=== PATIENT | male | born 1985 | race Caucasian/White ===

== ENCOUNTER 2021-01-13 09:07 | Outpatient (CLI) | payer OTHER, SELFPAY ==
--- NOTE | ~2021-01-13 | CT_ITS ---
EXAMINATION: CT abdomen pelvis w con DATE: 01/13/2021 09:39 INDICATION: Abdominal pain TECHNIQUE: Computed tomography (CT) of the abdomen and pelvis was performed with 100 mL Omnipaque-350 intravenous contrast. Automated exposure control and iterative reconstruction technique were employe d. The dose-length product was 594.94 mGy-cm. COMPARISON: None FINDINGS: Lung bases are clear. Heart size is normal. No pericardial or pleural effusion. Small sliding-type hi atal hernia. Several small well-defined low-attenuation hepatic cysts the largest measuring 1.4 cm. G allbladder, spleen, pancreas and bilateral adrenal glands are normal. Couple bilateral low-attenuatio n renal cysts the largest measuring 1.5 cm the upper pole of the left kidney. Small wedge-shaped jonatan ons of subtle decreased parenchymal enhancement at the lower pole of the left kidney suspicious for p yelonephritis. Small calcified appendicolith within the normal appendix. Bowels are unremarkable with no wall thickening or obstruction. Decompressed bladder is unremarkable. No free intraperitoneal gas or fluid. No pathologically enlarged abdominal or pelvic lymphadenopathy. L1 hemangioma. Mild thorac olumbar spondylosis. IMPRESSION: 1. Small regions of decreased parenchymal enhancement at the lower pole of the left kidney raising simeon spicion for pyelonephritis. Differential would include infarct. Correlate with urinalysis. Reviewed, dictated and finalized at location A. IMPRESSION: 1. Small regions of decreased parenchymal enhancement at the lower pole of the left kidney raising suspicion for pyelonephritis. Differential would include in farct. Correlate with urinalysis.
== END 2021-01-13 09:08 | disposition home or self-care (01) ==
PROVIDERS: Visit Provider Internal Medicine Gastroenterology
DX: R10.9 Unspecified abdominal pain (principal)
CPT/HCPCS: 74177; Q9967

== ENCOUNTER 2023-10-12 05:09 | Observation (INO) | payer OTHER, SELFPAY ==
[2023-10-12] VITALS (26 sets, daily range): BP systolic 103–133; BP diastolic 51–84; PULSE 80–157; RESP 15–27; TEMP 36.3–39.2; O2SAT 82–100
--- NOTE | ~2023-10-12 | CT_ITS ---
EXAMINATION: CTA chest PE protocol DATE: 10/12/2023 06:51 CORE OVEN TENDER INDICATION: Covid positive hypoxia. Tachycardia. TECHNIQUE: Computed tomographic angiography (CTA) of the chest was performed with 100 mL Omnipaque-35 0 intravenous contrast. The dose-length product was 631.47 mGy-cm. Maximum intensity projection 3D-re constructions of the aorta and other arteries were constructed by the technologist on a separate work station. COMPARISON: CT dated 10/12/2023. FINDINGS: Study technically adequate without evidence for pulmonary embolism. Mild mediastinal lympha denopathy, likely reactive. No significant pleural or pericardial effusion. There are liver cysts. Th ere is an accessory splenule. No endobronchial lesions. There is a 6 there is a 2 mm left fissural no dule. There are groundglass opacities in the lingula and left lower lobe, suspicious for pneumonia. M m fissural nodule on the right, image 51. 3 mm left lower lobe nodule, image 76. Mild thoracic spondy losis. IMPRESSION: 1. Groundglass opacities lingula and left lower lobe, consistent with pneumonia. 2: Mediastinal lymphadenopathy, likely reactive. 3: Small pulmonary nodules, likely benign. Consider follow-up CT chest in 12 months. Reviewed, dictated and finalized at location A. OVEN TENDER IMPRESSION: 1. Groundglass opacities lingula and left lower lobe, consistent with pneumonia . 2: Mediastinal lymphadenopathy, likely reactive. 3: Small pulmonary nodules, likely benign. Consider follow-up CT chest in 12 mo nths.
--- NOTE | ~2023-10-12 | XR_ITS ---
XR chest 1V portable 10/12/2023 06:02 Indication: Dyspnea. Covid positive. Procedure: AP portable chest Comparison: No prior studies for comparison. Findings: Heart size normal. No focal air space disease, pulmonary edema, pleural effusion or suspect ed pneumothorax. Impression: 1: No acute cardiopulmonary disease. Reviewed, dictated and finalized at location A. R FILTERER Impression: 1: No acute cardiopulmonary disease.
--- NOTE | 2023-10-12 05:24 | ECG_ITS ---
Measurements Intervals [place] Rate: 152 P: 33 WI: 120 QRS: 59 QRSD: 85 T: 51 QT: 253 QTc: 403 Interpretive Statements SINUS TACHYCARDIA INCOMPLETE RIGHT BUNDLE BRANCH BLOCK DELAYED PRECORDIAL R/S TRANSITION BASELINE WANDER- III, AVR, AVL, AVF ABNORMAL ECG NO PREVIOUS ECG AVAILABLE FOR COMPARISON Electronically Signed On 10-12-2023 8:14:50 ELECTRICIAN MAINTENANCE by Jose Rowe D.O.
--- NOTE | 2023-10-12 05:25 | ED.GENADULT ---
HPI - General Adult General Chief complaint: Shortness of Breath/Dyspnea Stated complaint: COVID+, SOB Time Seen by Provider: 10/12/23 05:19 History of Present Illness HPI narrative: patient is a 37-year-old gentleman who presents emergency department with chief complaint of shortness of breath. Patient reports that she started feeling bad on Friday or Friday and tested positive for COVID on Friday patient reports that he has been getting progressively more short of breath reports that he has been coughing and today he just feels generally unwell. The patient reports no prior history of lung problems or cardiac issues Related Data Allergies Allergy/AdvReac Type Severity Reaction Status Date / Time No Known Allergies Allergy Verified 10/12/23 05:32 Review of Systems Review of Systems: A 10 system review of systems was completed on the patient and is negative except for what is stated in the HPI. Nursing and ancillary documentation was reviewed. Exam Narrative: GENERAL: Well-appearing, well-nourished, and in no acute distress. HEAD: Normocephalic, atraumatic. EYES: PERRLA and EOMI. ENT: Nares clear, no rhinorrhea or epistaxis. Mucous membranes moist. NECK: Supple. CHEST: Clear to auscultation. mild respiratory distress. HEART: tachycardic rate and rhythm. No murmur heard. Normal peripheral pulses. ABDOMEN: Soft, nontender, nondistended, normal active bowel sounds. EXTREMITIES: Normal range of motion. No edema. SKIN: Warm, dry, no rash. NEURO: No focal deficits. Alert and oriented x3. PSYCH: Normal mood and affect. Course Vital Signs Vital signs: Vital Signs Temperature 39.2 C H 10/12/23 05:17 Pulse Rate 155 H 10/12/23 05:17 Respiratory Rate 24 H 10/12/23 05:17 Blood Pressure 103/51 L 10/12/23 05:17 Pulse Oximetry 87 L 10/12/23 05:17 Oxygen Delivery Nasal Cannula 10/12/23 05:17 Oxygen Flow Rate 5 10/12/23 05:17 Temperature 39.2 C H 10/12/23 05:17 Pulse Rate 155 H 10/12/23 05:17 Respiratory Rate 24 H 10/12/23 05:17 Blood Pressure 103/51 L 10/12/23 05:17 Pulse Oximetry 95 10/12/23 06:34 Oxygen Delivery High Flow Nasal Cannula 10/12/23 06:34 Oxygen Flow Rate 8 10/12/23 06:34 Medical Decision Making MDM Narrative Medical decision making narrative: differential diagnosis includes viral syndrome, pulmonary embolism, electrolyte abnormality, pneumonia, sepsis the patient was started on fluid resuscitation given antipyretics laboratory studies showed a positive RSV test white count was 10.6 lactate was 2.4 troponin was negative urinalysis shows trace ketones CT scan showed . Groundglass opacities lingula and left lower lobe, consistent with pneumonia. 2:? Mediastinal lymphadenopathy, likely reactive. 3: Small pulmonary nodules, likely benign. Consider follow-up CT chest in 12 months. Vital Signs Vital Signs: Vital Signs Temperature 39.2 C H 10/12/23 05:17 Pulse Rate 155 H 10/12/23 05:17 Respiratory Rate 24 H 10/12/23 05:17 Blood Pressure 103/51 L 10/12/23 05:17 Pulse Oximetry 87 L 10/12/23 05:17 Oxygen Delivery Nasal Cannula 10/12/23 05:17 Oxygen Flow Rate 5 10/12/23 05:17 Temperature 39.2 C H 10/12/23 05:17 Pulse Rate 155 H 10/12/23 05:17 Respiratory Rate 24 H 10/12/23 05:17 Blood Pressure 103/51 L 10/12/23 05:17 Pulse Oximetry 95 10/12/23 06:34 Oxygen Delivery High Flow Nasal Cannula 10/12/23 06:34 Oxygen Flow Rate 8 10/12/23 06:34 Lab Data 10/12/23 05:29 10/12/23 05:29 Labs: Lab Results 10/12/23 10/12/23 Range/Units 05:29 06:14 WBC 10.6 H (4.5-10.0) K/mm3 RBC 5.57 (4.6-6.20) M/mm3 Hgb 15.7 (14.0-18.0) g/dL Hct 47.5 (42.0-52.0) % MCV 85.3 (80-100) fl MCH 28.2 (26-34) pg MCHC 33.1 (32-36) g/dl RDW 14.5 (11.5-14.5) % Plt Count 302 (150-375) k/mm3 MPV 10.3 (7.4-10.4) fl Immature Gran % (Auto) 0.3 (0-0.5) % Buster
[2023-10-12] MEDS: BENZONATATE 100 MG CAPSULE 200 MG PO (05:32)
[2023-10-12] MEDS: ACETAMINOPHEN 500 MG TABLET 1000 MG PO (05:32)
[2023-10-12] MEDS: SODIUM CHLORIDE 0.9% IV 1,000 ML 999 ML IV CONT ×2 (05:33→06:19)
[2023-10-12] MEDS: ALBUTEROL SULFATE (*SP) INHALER 2 PUFF INHALATION (05:37)
[2023-10-12 05:43] LABS: Basophils Absolute Auto 0.1 K/mm3 (0.0-0.1); Basophils Percent Auto 0.6 % (0.2-1.2); Eosinophils Percent Auto 0.1 % (0-4.4); Hematocrit 47.5 % (42.0-52.0); Hemoglobin 15.7 g/dL (14.0-18.0); Immature Granulocyte Absolute 0.03 K/mm3 (0.00-0.031); Immature Granulocyte Percent A 0.3 % (0-0.5); Lymphocytes Absolute Auto 2.63 K/mm3 (0.9-3.2); Lymphocytes Percent Auto 24.9 % (18.3-44.2); Mean Corpuscular HGB Conc 33.1 g/dl (32-36); Mean Corpuscular Hemoglobin 28.2 pg (26-34); Mean Corpuscular Volume 85.3 fl (80-100); Mean Platelet Volume 10.3 fl (7.4-10.4); Monocytes Absolute Auto 0.6 K/mm3 (0.1-0.6); Monocytes Percent Auto 5.7 % (2.6-8.5); Neutrophils Absolute Auto 7.2 K/mm3 (1.3-6.7); Neutrophils Percent Auto 68.4 % (45.5-73.1); Platelet Count Result 302 k/mm3 (150-375); Red Blood Count 5.57 M/mm3 (4.6-6.20); Red Cell Distribution Width 14.5 % (11.5-14.5); White Blood Count 10.6 K/mm3 (4.5-10.0)
[2023-10-12 05:51] LABS: Lactic Acid Reflex 2.4 mmol/L (0.7-2.0)
[2023-10-12 05:52] LABS: Alanine Aminotransferase 38 U/L (6-50); Albumin Level 4.2 g/dL (3.5-5.1); Alkaline Phosphatase 81 U/L (38-126); Anion Gap 12 mmol/L (8-16); Aspartate Amino Transferase 40 U/L (17-59); Bilirubin,Total 0.4 mg/dL (0.2-1.3); Blood Urea Nitrogen 19 mg/dL (9-20); Calcium 9.6 mg/dL (8.4-10.2); Carbon Dioxide 21 mmol/L (22-30); Chloride 106 mmol/L (98-107); Estimated CRCL calculation 76 ml/min; Estimated Glomerular Filt Rate > 60; Glucose 149 mg/dL (65-110); Potassium 3.9 mmol/L (3.4-5.0); Sodium 139 mmol/L (137-145)
[2023-10-12 06:04] LABS: NT Pro B Type Natriuretic Pept 52 pg/mL (19.9-100); Troponin I 0.016 ng/mL (0.000-0.034)
[2023-10-12 06:19] LABS: Influenza A QL RT-PCR Negative (Negative); Influenza B QL RT-PCR Negative (Negative); RSV RNA, RT-PCR Positive (Negative); SARS-CoV-2 RNA PCR Negative (Negative)
[2023-10-12 06:25] LABS: Prothrombin Time 13.8 Seconds (11.1-14.7)
[2023-10-12 06:26] LABS: Partial Thromboplastin Time 25.6 SECONDS (22.3-36.8)
[2023-10-12 06:31] LABS: Appearance Urine Clear (Clear); Bacteria Urine None Seen /hpf; Bilirubin Urine 1+ (Negative); Blood Urine Negative (Negative); Color Urine Dark Yellow (Yellow); Glucose Urine UA Negative (Negative); Ketones Urine Trace mg/dL (Negative); Leukocyte Esterase Ur Negative LEU/UL (Negative); Nitrate Urine Negative (Negative); Protein Urine 1+ mg/dL (Negative); RBC Urine 0-2 /hpf (0-2); Specific Grav Ur 1.031 (1.001-1.035); Squamous Epithelial Cell Urine Occasional /hpf (Few); WBC Urine 0-5 /hpf; pH Urine 5.5 (5.0-9.0)
[2023-10-12 06:33] LABS: Add Urine Microscopic? YES
[2023-10-12 06:43] LABS: Procalcitonin 0.1 ng/mL
--- NOTE | 2023-10-12 07:10 | PM.IMHP ---
H&P: HPI History of Present Illness Date/Time: 10/12/23 07:10 Chief Complaint: Shortness of breath Narrative: Patient is a 37-year-old male developed flu-like symptoms on Friday last week, subsequently progressed on cough congestion, and Friday he had was deformed COVID test. He was taking [id number] medication but this was not helping. Yesterday he developed shortness of breath, and when he woke up this morning he was shivering and unable to catch his breath and was brought to the ED. he came in tachycardic hypoxic and tachypneic, requiring high-flow nasal cannula to keep oxygen saturation above 95 %, he got fluid boluses and breathing treatment with steroid which improved symptoms, his white count came back mildly elevated, he is COVID negative he however has positive RSV. CTA of the chest negative PE however showed ground-glass opacity in both lung bases. He denied vomiting or diarrhea and also said that he had been hydrating himself at home. Currently feels little bit better. Review of Systems Review of Systems: All systems reviewed & are unremarkable except as noted in HPI and below Meds Home Medications and Allergies Allergies Allergy/AdvReac Type Severity Reaction Status Date / Time No Known Allergies Allergy Verified 10/12/23 05:32 Vital Signs Vital Signs - 24 hr 10/12/23 05:17 10/12/23 05:40 10/12/23 05:45 Temperature 102.5 F H Pulse Rate 155 H Respiratory Rate 24 H Blood Pressure 103/51 L Pulse Oximetry 87 L 82 L 94 Oxygen Delivery Nasal Cannula Room Air High Flow Nasal Cannula Oxygen Flow Rate 5 8 10/12/23 06:34 Temperature Pulse Rate Respiratory Rate Blood Pressure Pulse Oximetry 95 Oxygen Delivery High Flow Nasal Cannula Oxygen Flow Rate 8 Exam Narrative: General: Awake alert and oriented x4, not in distress, HEENT: Normocephalic atraumatic EOMI, moist oral mucosa Respiratory: Tachypneic, mild bilateral respiratory wheezes, crackles on both lung bases Cardiovascular: Tachycardic, regular rhythm, normal on gallop, no edema Gastrointestinal: Soft nontender nondistended, normal bowel sounds Extremities: Accordingly of motion, no deformity Neuro: No focal deficit H&P: Results Labs Labs: Short CBC 10/12/23 Range/Units 05:29 WBC 10.6 H (4.5-10.0) K/mm3 Hgb 15.7 (14.0-18.0) g/dL Hct 47.5 (42.0-52.0) % Plt Count 302 (150-375) k/mm3 BMP 10/12/23 05:29 Sodium 139 Potassium 3.9 Chloride 106 Carbon Dioxide 21 L BUN 19 Creatinine 1.30 Glucose 149 H Calcium 9.6 Cardiac Enzymes 10/12/23 Range/Units 05:29 Troponin I 0.016 (0.000-0.034) ng/mL Liver Function 10/12/23 Range/Units 05:29 Total Bilirubin 0.4 (0.2-1.3) mg/dL AST 40 (17-59) U/L ALT 38 (6-50) U/L Alkaline Phosphatase 81 (38-126) U/L Albumin 4.2 (3.5-5.1) g/dL Urine 10/12/23 Range/Units 06:14 Urine Color Dark yellow (Yellow) Urine Appearance Clear (Clear) Urine pH 5.5 (5.0-9.0) Ur Specific [place] 1.031 (1.001-1.035) Urine Protein 1+ H (Negative) mg/dL Urine Glucose (UA) Negative (Negative) mg/dL ECG Interpretation: EKG on arrival showed sinus tachycardia with heart rate 152, regarding, motion artifacts, normal [place] interval QRS, QT and QTC, no acute STT wave changes Assessment and Plan Assessment and plan (1) Acute hypoxic respiratory failure: Code(s): J96.01 - Acute respiratory failure with hypoxia Status: Acute (2) Community acquired pneumonia: Code(s): J18.9 - Pneumonia, unspecified organism Status: Acute (3) RSV infection: Code(s): B33.8 - Other specified viral diseases Status: Acute Plan Patient will be admitted to IMU, scheduled breathing treatment, continue steroid, continue IV hydration, continue cough control, gradually wean off oxygen as tolerated. [facility] [place] [facility] H&P [facility] H&P: [id number] Initial Admit Me
[2023-10-12] MEDS: IPRATROPIUM 0.5 MG/ALBUTEROL SULFATE 2.5 MG AMPUL.NEB 3 ML INHALATION ×3 (08:19→20:23)
[2023-10-12 08:28] LABS: Alveolar/Arterial O2 Gradient 247.9 mmHg; Base Excess ABG -2.7 mEq/l (+/-2.0); Fractional Inspired Oxygen 56 %; HCO3 ABG 21.2 mEq/l (22.0-26.0); Oxygen Content ABG 21.2 %vol (16.0-22.0); Oxygen Saturation ABG 98.2 % (95.0-100.0); Oxyhemoglobin 96.7 % THb (90.0-100.0); PCO2 ABG 34.9 mmHg (35.0-45.0); PO2 ABG 112.6 mmHg (80.0-100.0); PO2 FiO2 Ratio Arterial Blood 2.01 %; Total Hemoglobin 15.5 g/dL (12.0-18.0); pH ABG 7.402 (7.350-7.450)
[2023-10-12 08:30] LABS: Device HIGH FLOW NASAL CANN; Modified Allen's Test Pass; Site Drawn RIGHT RADIAL
[2023-10-12 08:38] LABS: Reflex Lactic Acid Yes or No Add Lactic
[2023-10-12] MEDS: AZITHROMYCIN 500 MG/NS 250 ML 500 MG/250 ML BAG 250 MG IVPB (08:42)
[2023-10-12] MEDS: SODIUM CHLORIDE 0.9% IV 1,000 ML 125 ML IV CONT ×3 (08:43→22:54)
[2023-10-12 09:30] LABS: Lactic Acid 1.4 mmol/L (0.7-2.0)
[2023-10-12] MEDS: MAG HYDROX/AL HYDROX/SIMETH 30 ML UDC PO (11:46)
--- NOTE | 2023-10-12 11:46 | PC.NURSE ---
mylanta given for c/o heartburn
--- NOTE | 2023-10-12 13:40 | ADMGEN ---
This patient, John Chavez, was admitted to IMU Room 210-01. Patient/family oriented to hospital policies and general routines including ID bracelet, bed and alarms, visiting hours, pain management, procedures, bathroom and other care routines, personal items, smoking policy, room service/diet, and visiting hours. Information on how to activate the Rapid Response Team has been discussed. Patient/Family are encouraged to report perceived risks to care and to ask questions if they do not understand what they are told or what they should do.
[2023-10-12] MEDS: ACETAMINOPHEN 325 MG TABLET 650 MG PO (16:21)
--- NOTE | 2023-10-12 22:50 | PC.NURSE ---
This patient, John Chavez, was transferred to [facility] on 10/12/23 at 2251. Personal belongings sent with patient. Report given to Parker SILVA. Appropriate documentation sent with patient.
[2023-10-13] VITALS (16 sets, daily range): BP systolic 114–137; BP diastolic 66–76; PULSE 75–105; RESP 15–20; TEMP 36–36.6; O2SAT 95–97
[2023-10-13] MEDS: IPRATROPIUM 0.5 MG/ALBUTEROL SULFATE 2.5 MG AMPUL.NEB 3 ML INHALATION ×4 (02:56→19:39)
[2023-10-13] MEDS: SODIUM CHLORIDE 0.9% IV 1,000 ML 125 ML IV CONT ×3 (04:13→21:33)
[2023-10-13 06:28] LABS: Basophils Percent Auto 0.1 % (0.2-1.2); Hematocrit 38.2 % (42.0-52.0); Hemoglobin 12.4 g/dL (14.0-18.0); Immature Granulocyte Absolute 0.03 K/mm3 (0.00-0.031); Immature Granulocyte Percent A 0.3 % (0-0.5); Lymphocytes Absolute Auto 1.48 K/mm3 (0.9-3.2); Lymphocytes Percent Auto 13.9 % (18.3-44.2); Mean Corpuscular HGB Conc 32.5 g/dl (32-36); Mean Corpuscular Hemoglobin 28.4 pg (26-34); Mean Corpuscular Volume 87.4 fl (80-100); Monocytes Absolute Auto 0.7 K/mm3 (0.1-0.6); Monocytes Percent Auto 6.4 % (2.6-8.5); Neutrophils Absolute Auto 8.4 K/mm3 (1.3-6.7); Neutrophils Percent Auto 79.3 % (45.5-73.1); Platelet Count Result 208 k/mm3 (150-375); Red Blood Count 4.37 M/mm3 (4.6-6.20); Red Cell Distribution Width 14.8 % (11.5-14.5); White Blood Count 10.6 K/mm3 (4.5-10.0)
[2023-10-13 06:33] LABS: Anion Gap 5 mmol/L (8-16); Blood Urea Nitrogen 17 mg/dL (9-20); Calcium 8.3 mg/dL (8.4-10.2); Carbon Dioxide 23 mmol/L (22-30); Chloride 112 mmol/L (98-107); Estimated CRCL calculation 108 ml/min; Estimated Glomerular Filt Rate > 60; Glucose 111 mg/dL (65-110); Sodium 140 mmol/L (137-145)
[2023-10-13] MEDS: AZITHROMYCIN 500 MG/NS 250 ML 500 MG/250 ML BAG 250 MG IVPB (09:52)
--- NOTE | 2023-10-13 12:36 | PM.IMPN ---
Progress Note: A&P Assessment and Plan (1) Acute hypoxic respiratory failure: Code(s): J96.01 - Acute respiratory failure with hypoxia Status: Acute Assessment and Plan: Continue supportive therapy. Continue to monitor (2) Community acquired pneumonia: Code(s): J18.9 - Pneumonia, unspecified organism Status: Acute Assessment and Plan: Continue Rocephin and Azithromycin May transition to oral meds for discharge. (3) RSV infection: Code(s): B33.8 - Other specified viral diseases Status: Acute Assessment and Plan: Supportive therapy Time Spent With Patient Time with patient: 15 - 25 minutes Subjective Date/time seen: 10/13/23 12:36 Interval history: This pt was examined at the bedside today in interval assessment and reports he is still feeling weak and fatigued. He has some cough that is at times productive. He has been weaned to room air this AM and is so far doing well. If he continues to not have any distress, he will be ready for discharge tomorrow. Review of Systems Review of Systems: All systems reviewed & are unremarkable except as noted in HPI and below Exam Narrative: General: Awake alert and oriented x4, not in distress, HEENT: Normocephalic atraumatic EOMI, moist oral mucosa Respiratory: Tachypneic, mild bilateral respiratory wheezes, crackles on both lung bases Cardiovascular: Tachycardic, regular rhythm, normal on gallop, no edema Gastrointestinal: Soft nontender nondistended, normal bowel sounds Extremities: Accordingly of motion, no deformity Neuro: No focal deficit Objective Data Vital Signs Vital Signs: Vital Signs - 24 hr 10/12/23 13:15 10/12/23 14:14 10/12/23 14:45 Temperature 97.8 F 98.3 F Pulse Rate 93 89 88 Respiratory Rate 20 24 H 16 Blood Pressure 112/68 125/75 Pulse Oximetry 95 96 Oxygen Delivery Oxygen Flow Rate Fraction of Inspired Oxygen 10/12/23 14:54 10/12/23 14:54 10/12/23 16:00 Temperature 98.7 F Pulse Rate 91 98 Respiratory Rate 18 20 Blood Pressure 133/73 Pulse Oximetry 95 96 Oxygen Delivery High Flow Nasal Cannula Oxygen Flow Rate 2 Fraction of Inspired Oxygen 10/12/23 16:00 10/12/23 18:00 10/12/23 16:00 Temperature Pulse Rate 95 89 Respiratory Rate Blood Pressure Pulse Oximetry Oxygen Delivery Room Air Oxygen Flow Rate Fraction of Inspired Oxygen 10/12/23 20:37 10/12/23 20:37 10/12/23 20:38 Temperature Pulse Rate 83 83 99 Respiratory Rate 18 18 18 Blood Pressure Pulse Oximetry 95 Oxygen Delivery Room Air Oxygen Flow Rate Fraction of Inspired Oxygen 10/12/23 21:29 10/12/23 20:00 10/12/23 20:00 Temperature 97.3 F L Pulse Rate 96 83 Respiratory Rate 18 Blood Pressure 120/59 L Pulse Oximetry 96 96 Oxygen Delivery Room Air Oxygen Flow Rate Fraction of Inspired Oxygen 10/12/23 22:00 10/13/23 02:57 10/13/23 02:57 Temperature Pulse Rate 80 85 85 Respiratory Rate 18 18 Blood Pressure Pulse Oximetry 95 Oxygen Delivery Room Air Oxygen Flow Rate Fraction of Inspired Oxygen 10/13/23 03:26 10/13/23 03:43 10/13/23 03:05 Temperature 97.8 F Pulse Rate 88 88 91 Respiratory Rate 16 16 18 Blood Pressure 116/67 Pulse Oximetry 95 95 Oxygen Delivery Room Air Oxygen Flow Rate Fraction of Inspired Oxygen 10/13/23 07:38 10/13/23 07:38 10/13/23 07:45 Temperature Pulse Rate 87 90 Respiratory Rate 18 18 Blood Pressure Pulse Oximetry 95 Oxygen Delivery Room Air Oxygen Flow Rate Fraction of Inspired Oxygen 10/13/23 07:55 10/13/23 09:20 10/13/23 12:00 Temperature 96.8 F L 96.9 F L Pulse Rate 75 95 Respiratory Rate 20 20 16 Blood Pressure 128/66 137/76 Pulse Oximetry 97 97 95 Oxygen Delivery Room Air Oxygen Flow Rate Fraction of Inspired Oxygen 10/13/23 12:09 Temperature Pulse Rate Respiratory Rate 16 B
[2023-10-13] MEDS: PANTOPRAZOLE 40 MG TABLET PO (20:48)
[2023-10-14 01:11] VITALS: PULSE 86; RESP 18
[2023-10-14] MEDS: IPRATROPIUM 0.5 MG/ALBUTEROL SULFATE 2.5 MG AMPUL.NEB 3 ML INHALATION ×2 (01:11→08:55)
[2023-10-14 01:18] VITALS: PULSE 88; RESP 18
[2023-10-14 04:00] VITALS: BP 108/67; PULSE 80; RESP 15; TEMP 36.1; O2SAT 97
[2023-10-14] MEDS: SODIUM CHLORIDE 0.9% IV 1,000 ML 125 ML IV CONT (05:24)
[2023-10-14 08:55] VITALS: PULSE 86; RESP 18
[2023-10-14 09:10] VITALS: PULSE 86; RESP 20
[2023-10-14 09:17] LABS: Anion Gap 7 mmol/L (8-16); Blood Urea Nitrogen 12 mg/dL (9-20); Calcium 8.8 mg/dL (8.4-10.2); Carbon Dioxide 23 mmol/L (22-30); Chloride 110 mmol/L (98-107); Estimated CRCL calculation 121 ml/min; Estimated Glomerular Filt Rate > 60; Glucose 132 mg/dL (65-110); Potassium 3.8 mmol/L (3.4-5.0); Sodium 140 mmol/L (137-145)
[2023-10-14] MEDS: AZITHROMYCIN 500 MG/NS 250 ML 500 MG/250 ML BAG 250 MG IVPB (09:39)
[2023-10-14] MEDS: PANTOPRAZOLE 40 MG TABLET PO (09:39)
[2023-10-14 09:52] LABS: Basophils Percent Auto 0.3 % (0.2-1.2); Hematocrit 39.6 % (42.0-52.0); Hemoglobin 12.6 g/dL (14.0-18.0); Immature Granulocyte Percent A 0.9 % (0-0.5); Lymphocytes Absolute Auto 2.81 K/mm3 (0.9-3.2); Lymphocytes Percent Auto 26.5 % (18.3-44.2); Mean Corpuscular HGB Conc 31.8 g/dl (32-36); Mean Corpuscular Hemoglobin 27.8 pg (26-34); Mean Corpuscular Volume 87.4 fl (80-100); Mean Platelet Volume 10.3 fl (7.4-10.4); Monocytes Absolute Auto 0.2 K/mm3 (0.1-0.6); Monocytes Percent Auto 2.2 % (2.6-8.5); Neutrophils Absolute Auto 7.5 K/mm3 (1.3-6.7); Neutrophils Percent Auto 70.1 % (45.5-73.1); Platelet Count Result 249 k/mm3 (150-375); Red Blood Count 4.53 M/mm3 (4.6-6.20); Red Cell Distribution Width 15.1 % (11.5-14.5); White Blood Count 10.6 K/mm3 (4.5-10.0)
--- NOTE | 2023-10-14 12:07 | PM.DS ---
DS: Admitting Diagnosis Discharge Date 10/14/23 Admitting Diagnosis SOB DS: Discharge Diagnosis Discharge Diagnosis (1) Acute hypoxic respiratory failure: Code(s): J96.01 - Acute respiratory failure with hypoxia Status: Resolved (2) Community acquired pneumonia: Code(s): J18.9 - Pneumonia, unspecified organism Status: Acute Assessment and Plan: d/c antibiotics at discharge as this is likely viral pneumonia secondary to RSV and he has no high risk conditions. Continue prednisone PO for 5 days. (3) RSV infection: Code(s): B33.8 - Other specified viral diseases Status: Acute Assessment and Plan: Supportive therapy DS: Summary Hospital Course Hospital Course: Patient is a 37 YO male with no PMH admitted for SOB. He had developed flu-like symptoms on Friday of last week, progressed to cough congestion. He was taking [id number] medication but this was not helping. Prior to admission he developed worsening SOB, and felt unable to catch his breath. He came in tachycardic hypoxic and tachypneic, requiring high-flow nasal cannula to keep oxygen saturation above 95%, he got fluid boluses and breathing treatment with steroid which improved symptoms, Respiratory panel was positive for RSV. CTA of the chest negative PE however showed ground-glass opacity in both lung bases. He was treated with IV Rocephin and azithromycin, IV Decadron. His condition rapidly improved and he has been on room air without distress. He has no high risk condition, and his pneumonia is likely secondary to viral RSV. Will continue 5 days of prednisone as his lungs sound wheezy, but will d/c AB therapy. He is stable to return to home today. Status at Discharge Functional status at discharge: independent ambulation Overall status at discharge: patient is progressing back to baseline Time Spent with Patient Time attestation: Total time spent providing and/or coordinating discharge services: Exam Narrative: General: Well appearing male, appears stated age. Awake, alert and oriented x4, no distress. HEENT: EOMI, PERRLA. Respiratory: Mild bilateral respiratory wheezes, crackles on both lung bases Cardiovascular: RRR, no edema Gastrointestinal: Soft nontender nondistended, normal bowel sounds Extremities: normal ROM, no deformity Neuro: No focal deficit Psych: pleasant and cooperative. DS: Data Data Completed and Pending Labs on day of discharge: Labs from last 24 hours 10/14/23 08:59 WBC 10.6 H RBC 4.53 L Hgb 12.6 L Hct 39.6 L MCV 87.4 MCH 27.8 MCHC 31.8 L RDW 15.1 H Plt Count 249 MPV 10.3 Immature Gran % (Auto) 0.9 H Neut % (Auto) 70.1 Lymph % (Auto) 26.5 [place] % (Auto) 2.2 L Eos % (Auto) 0.0 Baso % (Auto) 0.3 Lymph # (Auto) 2.81 [place] # (Auto) 0.2 Eos # (Auto) 0.0 Baso # (Auto) 0.0 Abs Immat Gran (auto) 0.10 H Absolute Neuts (auto) 7.5 H Absolute Nucleated RBC 0.0 Nucleated RBC % 0.0 Sodium 140 Potassium 3.8 Chloride 110 H Carbon Dioxide 23 Anion Gap 7 L BUN 12 D Creatinine 0.80 Estim Creat Clear Calc 121 Estimated GFR > 60 Glucose 132 H Calcium 8.8 Preliminary micro results at discharge 10/12/23 05:50 Blood Culture - Preliminary Blood 10/12/23 05:50 Blood Culture - Preliminary Blood Discharge Plan Discharge Attending physician on discharge: Keven Bernal Discharging Clinician: Nahomy Gannon Anticipated Discharge Date/Time: 10/14/23 11:10 Patient Disposition: Home, Self-Care Activity: as tolerated Diet: regular Discharge Instructions: You will still have symptoms of pneumonia after you leave the hospital. Your cough will slowly get better over 7 to 14 days. Sleeping and eating may take up to a week to return to normal. Your energy level may take 2 weeks or more to return to normal. Breathing warm, moist air helps loosen the sticky mucus that may make you feel like you are choki
--- NOTE | 2023-10-20 12:55 | PC.NURSE ---
Blood cx are negative.
== END 2023-10-14 12:15 | disposition home or self-care (01) ==
LOC: ANHED 07:04 → ANHIMU 16:09 → ANH3MEDSUR 10-13 06:34 → ANHIMU 10-15 09:43
PROVIDERS: Nurse Practitioner; Admitting Provider Student in an Organized Health Care Education/Training Program; Emergency Provider Emergency Medicine; Visit Provider Nurse Practitioner Adult Health
DX: J96.01 Acute respiratory failure with hypoxia (principal); J12.1 Respiratory syncytial virus pneumonia; Z20.822 Contact with and (suspected) exposure to COVID-19
CPT/HCPCS: 36415; 36600; 71045; 71275; 80048; 80053; 81001; 82805; 83605; 83880; 84145; 84484; 85025; 85610; 85730; 87040; 87637; 93005; 94640; 94664; 96361; 96365; 96366; 96367; 96375; 96376; 99285; A9270; G0378; J0456; J0696; J1100; J7030; Q9967